=== PATIENT | male | born 1980 | race Caucasian/White ===

== ENCOUNTER 2017-01-25 12:36 | Inpatient (IN) | payer MEDICAID ==
[~2017-01-25] VITALS: Ht 177.8 cm; Wt 94.8 kg
[2017-01-25 14:05] LABS: BASOPHILS % (AUTO) 0.8 % (0.0-2.0); EOSINOPHILS % (AUTO) 4.2 % (1.0-6.0); HEMATOCRIT 42.7 % (41-53); HEMOGLOBIN 14.7 g/dL (13.5-17.5); LYMPHOCYTES # (AUTO) 2.8 K/uL (1.0-4.8); LYMPHOCYTES % (AUTO) 39.2 % (22.0-44.0); MEAN CORPUSCULAR HEMOGLOBIN 30.4 pg (26.0-34.0); MEAN CORPUSCULAR HGB CONC 34.3 G/dL (31.0-37.0); MEAN CORPUSCULAR VOLUME 89 fL (80-100); MONOCYTES # (AUTO) 0.5 K/uL (0.1-1.0); MONOCYTES % (AUTO) 7.6 % (2.0-9.0); NEUTROPHILS # (AUTO) 3.4 K/uL (1.8-7.7); NEUTROPHILS % (AUTO) 48.2 % (40.0-70.0); PLATELET COUNT (AUTO) 290 K/uL (150-450); RED BLOOD CELL COUNT(AUTO) 4.82 MIL/uL (4.50-5.90); RED CELL DISTRIBUTION WIDTH 13.7 % (11.5-14.5); WHITE BLOOD COUNT (AUTO) 7.1 K/uL (4.5-11.0)
[2017-01-25 14:07] LABS: GLUCOSE,POINT OF CARE 271 MG/DL (70-110)
[2017-01-25 14:12] LABS: ANION GAP 3 mmol/L (8-16); CALCIUM, TOTAL 8.3 mg/dL (8.8-10.5); CARBON DIOXIDE 34 mmol/L (22-29); CHLORIDE 104 mmol/L (98-107); CREATININE 1.04 mg/dL (0.60-1.30); GLOMERULAR FILTR. RATE CALC > 60 mL/min (>60); SODIUM SERUM 141 mmol/L (136-145); UREA NITROGEN, BLOOD 7 mg/dL (7-18)
[2017-01-25 14:18] LABS: ALANINE AMINOTRANSFERASE 23 U/L (12-78); ALBUMIN 3.8 g/dL (3.4-5.0); ASPARTATE AMINOTRANSFERASE 15 U/L (15-37); BILIRUBIN,TOTAL 0.3 mg/dL (0.1-1.0); TOTAL PROTEIN, SERUM 7.2 g/dL (6.4-8.2)
[2017-01-25] MEDS: LORazepam 2 MG TABLET PO ONE ×2 (15:09→15:42)
[2017-01-25 17:04] LABS: CHOL/HDL RATIO 5.4 (4.2-7.3)
[2017-01-25 18:48] VITALS: BP 142/82
[2017-01-25] MEDS ORDERED: DEXTROSE 50%-WATER 25 GM/50 ML SYRINGE IVP PRN (20:00)
[2017-01-25 20:07] LABS: GLUCOSE COMMENT 1 Received Meds; GLUCOSE,POINT OF CARE 185 MG/DL (70-110)
[2017-01-25] MEDS: HALOPERIDOL 5 MG TABLET PO PRN (20:08)
[2017-01-25] MEDS: LORazepam 2 MG TABLET PO PRN (20:09)
[2017-01-25] MEDS: ZOLPIDEM TARTRATE 10 MG TABLET PO PRN (21:27)
[2017-01-25] MEDS: INSULIN ASPART 100 UNITS/ML SQ PRN (21:51)
[2017-01-26 05:42] LABS: GLUCOSE,POINT OF CARE 146 MG/DL (70-110)
[2017-01-26] MEDS: INSULIN ASPART 100 UNITS/ML SQ PRN (07:10)
[2017-01-26 08:30] VITALS: BP 140/84
[2017-01-26] MEDS: NICOTINE 21 MG/24 HOUR PATCH TD SCH (11:32)
[2017-01-26 11:52] LABS: GLUCOSE,POINT OF CARE 134 MG/DL (70-110)
[2017-01-26 17:44] VITALS: BP 124/66
[2017-01-26] MEDS ORDERED: ACETAMINOPHEN 325 MG TABLET PO PRN (20:00)
[2017-01-26] MEDS ORDERED: IBUPROFEN 400 MG TABLET PO PRN (20:00)
[2017-01-26] MEDS: SIMVASTATIN 5 MG TABLET PO SCH (21:52)
[2017-01-26 22:42] LABS: GLUCOSE COMMENT 1 FASTING; GLUCOSE,POINT OF CARE 87 MG/DL (70-110)
[2017-01-27 06:28] LABS: GLUCOSE COMMENT 1 Received Meds; GLUCOSE,POINT OF CARE 173 MG/DL (70-110)
[2017-01-27 06:57] LABS: HEMOGLOBIN A1C 8.8 % (4.5-6.2)
[2017-01-27 07:01] LABS: THYROID STIMULATING HORMONE 0.38 uIU/mL (0.36-3.74)
[2017-01-27] MEDS: INSULIN ASPART 100 UNITS/ML SQ PRN ×2 (07:15→22:00)
[2017-01-27 08:30] VITALS: BP 124/81
[2017-01-27] MEDS: FISH OIL/OMEGA-3 FATTY ACIDS 500 MG CAPSULE PO SCH (09:56)
[2017-01-27] MEDS: NICOTINE 21 MG/24 HOUR PATCH TD SCH (10:01)
[2017-01-27 12:07] LABS: GLUCOSE,POINT OF CARE 134 MG/DL (70-110)
[2017-01-27] MEDS: CITALOPRAM HYDROBROMIDE 20 MG TABLET PO SCH (12:55)
[2017-01-27 17:33] LABS: GLUCOSE COMMENT 1 FASTING; GLUCOSE,POINT OF CARE 119 MG/DL (70-110)
[2017-01-27] MEDS: ZOLPIDEM TARTRATE 10 MG TABLET PO PRN (20:35)
[2017-01-27] MEDS: SIMVASTATIN 5 MG TABLET PO SCH (20:36)
[2017-01-27 20:42] LABS: GLUCOSE COMMENT 1 FASTING; GLUCOSE,POINT OF CARE 225 MG/DL (70-110)
[2017-01-27 21:30] VITALS: BP 115/63
[2017-01-28 04:30] VITALS: BP 127/85
[2017-01-28 05:27] LABS: GLUCOSE,POINT OF CARE 206 MG/DL (70-110)
[2017-01-28] MEDS: INSULIN ASPART 100 UNITS/ML SQ PRN (06:42)
[2017-01-28 08:30] VITALS: BP 129/77
[2017-01-28] MEDS: CITALOPRAM HYDROBROMIDE 20 MG TABLET PO SCH (09:48)
[2017-01-28] MEDS: FISH OIL/OMEGA-3 FATTY ACIDS 500 MG CAPSULE PO SCH (09:48)
[2017-01-28] MEDS: NICOTINE 21 MG/24 HOUR PATCH TD SCH (09:48)
[2017-01-28] MEDS: LORazepam 2 MG TABLET PO PRN (09:52)
[2017-01-28] MEDS: HALOPERIDOL 5 MG TABLET PO PRN (09:52)
[2017-01-28 11:57] LABS: GLUCOSE,POINT OF CARE 106 MG/DL (70-110)
[2017-01-28] MEDS ORDERED: CITA20TA9 PO (14:21)
[2017-01-28] MEDS ORDERED: SIMV5TAB6 PO (14:22)
== END 2017-01-28 18:00 | disposition home or self-care (01) | DRG 751 ==
LOC: EMS 12:37 → AHU 17:24 → 3EI 17:24
PROVIDERS: ADMIT Psychiatry & Neurology Psychiatry; ATTEND Psychiatry & Neurology Psychiatry
DX: F33.2 Major depressive disorder, recurrent severe without psychotic features (principal); R45.851 Suicidal ideations; E11.65 Type 2 diabetes mellitus with hyperglycemia; E78.5 Hyperlipidemia, unspecified; F10.10 Alcohol abuse, uncomplicated; F15.10 Other stimulant abuse, uncomplicated; F19.10 Other psychoactive substance abuse, uncomplicated; F17.210 Nicotine dependence, cigarettes, uncomplicated; Z71.41 Alcohol abuse counseling and surveillance of alcoholic; Z71.51 Drug abuse counseling and surveillance of drug abuser; Z79.4 Long term (current) use of insulin; Z59.0 Homelessness
CPT/HCPCS: 82962; 83036; 84443; 99285; G0480

== ENCOUNTER 2017-02-01 16:29 | Inpatient (IN) | payer MEDICAID ==
[~2017-02-01] VITALS: Ht 172.7 cm; Wt 97.4 kg
[~2017-02-01 16:29] MED LIST: CITA20TA9 PO; SIMV5TAB6 PO
[2017-02-01 16:42] LABS: GLUCOSE,POINT OF CARE 190 MG/DL (70-110)
[2017-02-01 18:11] LABS: ANION GAP 3 mmol/L (8-16); CARBON DIOXIDE 34 mmol/L (22-29); CHLORIDE 101 mmol/L (98-107); CREATININE 0.94 mg/dL (0.60-1.30); GLOMERULAR FILTR. RATE CALC > 60 mL/min (>60); POTASSIUM 4.5 mmol/L (3.5-5.1); SODIUM SERUM 138 mmol/L (136-145); UREA NITROGEN, BLOOD 9 mg/dL (7-18)
[2017-02-01 18:17] LABS: ALANINE AMINOTRANSFERASE 25 U/L (12-78); ALBUMIN 3.8 g/dL (3.4-5.0); ASPARTATE AMINOTRANSFERASE 16 U/L (15-37); BASOPHILS # (AUTO) 0.05 K/uL (0.00-0.20); BASOPHILS % (AUTO) 0.8 % (0.0-2.0); BILIRUBIN,TOTAL 0.2 mg/dL (0.1-1.0); EOSINOPHILS # (AUTO) 0.13 K/uL (0.00-0.70); EOSINOPHILS % (AUTO) 1.82 % (1.0-6.0); HEMATOCRIT 41.6 % (41-53); HEMOGLOBIN 13.9 g/dL (13.5-17.5); LYMPHOCYTES # (AUTO) 3.1 K/uL (1.0-4.8); LYMPHOCYTES % (AUTO) 43.7 % (22.0-44.0); MEAN CORPUSCULAR HEMOGLOBIN 29.8 pg (26.0-34.0); MEAN CORPUSCULAR HGB CONC 33.4 G/dL (31.0-37.0); MEAN CORPUSCULAR VOLUME 89 fL (80-100); MONOCYTES # (AUTO) 0.9 K/uL (0.1-1.0); MONOCYTES % (AUTO) 13.1 % (2.0-9.0); NEUTROPHILS # (AUTO) 2.9 K/uL (1.8-7.7); NEUTROPHILS % (AUTO) 40.6 % (40.0-70.0); PLATELET COUNT (AUTO) 249 K/uL (150-450); RED BLOOD CELL COUNT(AUTO) 4.67 MIL/uL (4.50-5.90); RED CELL DISTRIBUTION WIDTH 13.7 % (11.5-14.5); TOTAL PROTEIN, SERUM 7.1 g/dL (6.4-8.2)
[2017-02-01] MEDS ORDERED: LORazepam 2 MG TABLET PO PRN (20:15)
[2017-02-01] MEDS ORDERED: HALOPERIDOL 5 MG TABLET PO PRN (20:15)
[2017-02-01] MEDS ORDERED: QUEtiapine FUMARATE 100 MG TABLET PO PRN (20:15)
[2017-02-01] MEDS ORDERED: ZOLPIDEM TARTRATE 10 MG TABLET PO PRN ×2 (20:15)
[2017-02-01] MEDS ORDERED: LORazepam 2 MG TABLET PO ONE (20:30)
[2017-02-01] MEDS ORDERED: HALOPERIDOL 5 MG TABLET PO ONE (20:30)
[2017-02-01] MEDS ORDERED: DiphenhydrAMINE HCL 25 MG CAPSULE PO ONE (20:30)
[2017-02-01 20:36] LABS: APPEARANCE,URINE CLEAR (CLEAR); GLUCOSE, URINE (UA) 500 mg/dL (NEGATIVE); KETONES,URINE NEGATIVE (NEGATIVE); LEUKOCYTE ESTERASE ,URINE NEGATIVE (NEGATIVE); OCCULT BLOOD,URINE NEGATIVE (NEGATIVE); PH,URINE 6.5 (5.0-8.0); PROTEIN,URINE NEGATIVE (NEGATIVE)
[2017-02-01 20:38] LABS: ADD UA MICROSCOPIC YES
[2017-02-01 20:48] LABS: SQUAMOUS EPITHELIAL CELL,UR Few /LPF (None Seen)
[2017-02-01 20:50] LABS: RBC,URINE None Seen /HPF (0-2); TRANSITIONAL EPI CELLS,URINE Few /LPF (None Seen)
[2017-02-01] MEDS ORDERED: ACETAMINOPHEN 325 MG TABLET PO PRN ×2 (21:00→23:00)
[2017-02-01 22:00] VITALS: BP 125/69
[2017-02-01 22:12] LABS: GLUCOSE COMMENT 1 Received Meds; GLUCOSE,POINT OF CARE 168 MG/DL (70-110)
[2017-02-01] MEDS ORDERED: PNEUMOCOCCAL VACCINE POLYVALENT 0.5 ML VIAL [PPSV23] IM ONE (22:15)
[2017-02-02 06:39] VITALS: BP 105/66
[2017-02-02 08:32] VITALS: BP 111/73
[2017-02-02] MEDS: NICOTINE 14 MG/24 HOUR PATCH TD SCH (09:41)
[2017-02-02] MEDS: LORazepam 2 MG TABLET PO PRN ×2 (09:49→18:49)
[2017-02-02] MEDS ORDERED: GLUCAGON,HUMAN RECOMBINANT 1 MG VIAL IM PRN (13:30)
[2017-02-02 16:48] VITALS: BP 117/79
[2017-02-02] MEDS: DIVALPROEX SODIUM 500 MG DR TABLET PO SCH (17:04)
[2017-02-02] MEDS: INSULIN ASPART 100 UNITS/ML SQ PRN ×2 (17:05→21:03)
[2017-02-02 17:57] LABS: GLUCOSE COMMENT 1 Received Meds; GLUCOSE,POINT OF CARE 198 MG/DL (70-110)
[2017-02-02] MEDS ORDERED: SIMVASTATIN 20 MG TABLET PO SCH (21:00)
[2017-02-02 21:12] LABS: GLUCOSE,POINT OF CARE 136 MG/DL (70-110)
[2017-02-03 06:24] LABS: GLUCOSE,POINT OF CARE 152 MG/DL (70-110)
[2017-02-03] MEDS: INSULIN ASPART 100 UNITS/ML SQ PRN ×2 (06:26→12:09)
[2017-02-03 06:30] VITALS: BP 104/66
[2017-02-03 07:50] LABS: CHOL/HDL RATIO 4.7 (4.2-7.3)
[2017-02-03 09:02] VITALS: BP 106/65
[2017-02-03] MEDS: NICOTINE 14 MG/24 HOUR PATCH TD SCH (09:09)
[2017-02-03] MEDS: DIVALPROEX SODIUM 500 MG DR TABLET PO SCH ×2 (09:09→16:01)
[2017-02-03] MEDS ORDERED: CITALOPRAM HYDROBROMIDE 20 MG TABLET PO SCH (09:45)
[2017-02-03] MEDS: LORazepam 2 MG TABLET PO PRN (09:57)
[2017-02-03] MEDS ORDERED: MUPI1OIN4 NS (10:59)
[2017-02-03] MEDS ORDERED: DIVA500T35 PO (10:59)
[2017-02-03] MEDS ORDERED: SIMV-260 PO (10:59)
[2017-02-03 12:47] LABS: GLUCOSE,POINT OF CARE 175 MG/DL (70-110)
[2017-02-03 16:42] VITALS: BP 105/65
== END 2017-02-03 16:20 | disposition home or self-care (01) | DRG 750 ==
LOC: EMS 16:31 → B3A 20:30 → 3EI 02-03 09:05 → B3A 02-03 11:59
PROVIDERS: ADMIT Psychiatry & Neurology Psychiatry; ATTEND Psychiatry & Neurology Psychiatry
DX: F25.9 Schizoaffective disorder, unspecified (principal); R45.850 Homicidal ideations; R45.851 Suicidal ideations; E11.9 Type 2 diabetes mellitus without complications; E78.5 Hyperlipidemia, unspecified; F19.10 Other psychoactive substance abuse, uncomplicated; F10.10 Alcohol abuse, uncomplicated; Y90.0 Blood alcohol level of less than 20 mg/100 ml; Z72.0 Tobacco use
CPT/HCPCS: 82962; 87081; 90471; 99285; G0480

== ENCOUNTER 2017-05-18 15:40 | Emergency (ER) | payer MEDICAID, OTHER ==
[~2017-05-18] VITALS: Ht 172.7 cm; Wt 103.2 kg
[~2017-05-18 15:40] MED LIST changes: -CITA20TA9 PO; +DIVA500T35 PO; +FLUO-191 PO; +METO25XL PO; +QUET200T PO; +SIMV-260 PO; -SIMV5TAB6 PO
[2017-05-18 16:03] LABS: GLUCOSE,POINT OF CARE 188 MG/DL (70-110)
[2017-05-18] MEDS ORDERED: TRAM50TA4 PO (16:05)
[2017-05-18] MEDS ORDERED: INSLAN SQ (16:05)
[2017-05-18] MEDS ORDERED: HUMLIS7525 SQ (16:05)
[2017-05-18] MEDS ORDERED: ACETAMINOPHEN 1000 MG/ISO-OSM 100 ML IV ONE (16:15)
[2017-05-18 16:36] LABS: BASOPHILS % (AUTO) 0.5 % (0.0-2.0); EOSINOPHILS % (AUTO) 1.3 % (1.0-6.0); HEMATOCRIT 39.3 % (41-53); HEMOGLOBIN 13.3 g/dL (13.5-17.5); LYMPHOCYTES # (AUTO) 2.8 K/uL (1.0-4.8); LYMPHOCYTES % (AUTO) 50.1 % (22.0-44.0); MEAN CORPUSCULAR HEMOGLOBIN 30.7 pg (26.0-34.0); MEAN CORPUSCULAR HGB CONC 33.8 G/dL (31.0-37.0); MEAN CORPUSCULAR VOLUME 91 fL (80-100); MONOCYTES # (AUTO) 0.6 K/uL (0.1-1.0); MONOCYTES % (AUTO) 10.4 % (2.0-9.0); NEUTROPHILS # (AUTO) 2.1 K/uL (1.8-7.7); NEUTROPHILS % (AUTO) 37.7 % (40.0-70.0); PLATELET COUNT (AUTO) 255 K/uL (150-450); RED BLOOD CELL COUNT(AUTO) 4.32 MIL/uL (4.50-5.90); RED CELL DISTRIBUTION WIDTH 14.1 % (11.5-14.5); WHITE BLOOD COUNT (AUTO) 5.6 K/uL (4.5-11.0)
[2017-05-18 16:47] LABS: ANION GAP 8 mmol/L (8-16); CALCIUM, TOTAL 8.4 mg/dL (8.8-10.5); CARBON DIOXIDE 30 mmol/L (22-29); CHLORIDE 103 mmol/L (98-107); CREATININE 0.75 mg/dL (0.60-1.30); GLOMERULAR FILTR. RATE CALC > 60 mL/min (>60); POTASSIUM 3.7 mmol/L (3.5-5.1); SODIUM SERUM 141 mmol/L (136-145); UREA NITROGEN, BLOOD 10 mg/dL (7-18)
[2017-05-18 17:00] LABS: B-TYPE NATRIURETIC PEPTIDE 10 pg/mL (0-100)
[2017-05-18] MEDS ORDERED: SODIUM CHLORIDE 0.9% 1,000 ML IV ONE (17:00)
[2017-05-18 17:10] LABS: ALANINE AMINOTRANSFERASE 22 U/L (12-78); ALBUMIN 3.7 g/dL (3.4-5.0); ASPARTATE AMINOTRANSFERASE 15 U/L (15-37); BILIRUBIN,TOTAL 0.2 mg/dL (0.1-1.0); CREATINE KINASE, TOTAL 362 U/L (39-308); TOTAL PROTEIN, SERUM 6.9 g/dL (6.4-8.2)
[2017-05-18] MEDS ORDERED: HydrOXYzine PAMOATE 50 MG CAPSULE PO ONE (17:45)
[2017-05-18] MEDS ORDERED: KETOROLAC TROMETHAMINE 30 MG/ML VIAL IVP ONE (18:30)
[2017-05-18 18:41] VITALS: BP 127/77
== END 2017-05-18 18:56 | disposition home or self-care (01) ==
LOC: EMS 15:44
DX: R07.89 Other chest pain (principal); F41.9 Anxiety disorder, unspecified; E11.9 Type 2 diabetes mellitus without complications; F17.210 Nicotine dependence, cigarettes, uncomplicated
CPT/HCPCS: 36415; 71010; 80053; 80307; 82550; 82553; 82962; 83880; 84484; 85025; 85379; 93005; 96365; 96366; 96375; 99285; J0131; J1885; J7030; 96374

== ENCOUNTER 2017-05-18 22:07 | Emergency (ER) | payer OTHER ==
[~2017-05-18] VITALS: Ht 172.7 cm; Wt 103.5 kg
[~2017-05-18 22:07] MED LIST changes: +HUMLIS7525 SQ; +INSLAN SQ; +TRAM50TA4 PO
[2017-05-18] MEDS ORDERED: LORazepam 2 MG TABLET PO ONE (23:45)
[2017-05-18] MEDS ORDERED: KETOROLAC TROMETHAMINE 60 MG/2 ML VIAL IM ONE (23:45)
[2017-05-19 00:03] VITALS: BP 147/93
== END 2017-05-19 00:10 | disposition home or self-care (01) ==
LOC: EMS 22:08
DX: R07.89 Other chest pain (principal); E11.9 Type 2 diabetes mellitus without complications; F17.210 Nicotine dependence, cigarettes, uncomplicated
CPT/HCPCS: 93005; 96372; 99283; J1885

== ENCOUNTER 2017-05-19 11:56 | Inpatient (IN) | payer MEDICAID, OTHER ==
[~2017-05-19] VITALS: Ht 172.7 cm; Wt 103.0 kg
[2017-05-19 12:12] LABS: GLUCOSE,POINT OF CARE 242 MG/DL (70-110)
[2017-05-19 12:23] LABS: BASOPHILS % (AUTO) 0.5 % (0.0-2.0); EOSINOPHILS % (AUTO) 0.9 % (1.0-6.0); HEMATOCRIT 42.7 % (41-53); HEMOGLOBIN 14.5 g/dL (13.5-17.5); LYMPHOCYTES # (AUTO) 2.4 K/uL (1.0-4.8); LYMPHOCYTES % (AUTO) 23.8 % (22.0-44.0); MEAN CORPUSCULAR HEMOGLOBIN 30.9 pg (26.0-34.0); MEAN CORPUSCULAR HGB CONC 33.8 G/dL (31.0-37.0); MEAN CORPUSCULAR VOLUME 91 fL (80-100); MONOCYTES # (AUTO) 1.3 K/uL (0.1-1.0); MONOCYTES % (AUTO) 12.3 % (2.0-9.0); NEUTROPHILS # (AUTO) 6.3 K/uL (1.8-7.7); NEUTROPHILS % (AUTO) 62.5 % (40.0-70.0); PLATELET COUNT (AUTO) 253 K/uL (150-450); RED BLOOD CELL COUNT(AUTO) 4.68 MIL/uL (4.50-5.90); RED CELL DISTRIBUTION WIDTH 14.3 % (11.5-14.5); WHITE BLOOD COUNT (AUTO) 10.2 K/uL (4.5-11.0)
[2017-05-19 12:31] LABS: ANION GAP 7 mmol/L (8-16); CALCIUM, TOTAL 8.7 mg/dL (8.8-10.5); CARBON DIOXIDE 29 mmol/L (22-29); CHLORIDE 103 mmol/L (98-107); CREATININE 1.01 mg/dL (0.60-1.30); GLOMERULAR FILTR. RATE CALC > 60 mL/min (>60); POTASSIUM 4.6 mmol/L (3.5-5.1); SODIUM SERUM 139 mmol/L (136-145); UREA NITROGEN, BLOOD 16 mg/dL (7-18)
[2017-05-19 12:37] LABS: ALANINE AMINOTRANSFERASE 22 U/L (12-78); ALBUMIN 3.9 g/dL (3.4-5.0); ASPARTATE AMINOTRANSFERASE 11 U/L (15-37); BILIRUBIN,TOTAL 0.3 mg/dL (0.1-1.0); TOTAL PROTEIN, SERUM 7.3 g/dL (6.4-8.2); VALPROIC ACID 53 mcg/mL (50-100)
[2017-05-19] MEDS ORDERED: ZOLPIDEM TARTRATE 10 MG TABLET PO PRN (13:15)
[2017-05-19] MEDS: LORazepam 2 MG TABLET PO PRN (17:58)
[2017-05-19] MEDS: HALOPERIDOL 5 MG TABLET PO PRN (17:58)
[2017-05-19 17:59] VITALS: BP 129/94
[2017-05-19 18:13] LABS: GLUCOSE,POINT OF CARE 251 MG/DL (70-110)
[2017-05-19] MEDS ORDERED: INFLUENZA VIRUS VACCINE QVS 2017-18 (3YR+)/PF 60 MCG/0.5 ML SYRINGE IM ONE (18:15)
[2017-05-19] MEDS ORDERED: GLUCAGON,HUMAN RECOMBINANT 1 MG VIAL IM PRN (18:30)
[2017-05-19 20:42] LABS: GLUCOSE COMMENT 1 Received Meds; GLUCOSE,POINT OF CARE 235 MG/DL (70-110)
[2017-05-19] MEDS: INSULIN ASPART 100 UNITS/ML SQ PRN (21:00)
[2017-05-19] MEDS: SIMVASTATIN 20 MG TABLET PO SCH (21:07)
[2017-05-20 06:36] VITALS: BP 128/81
[2017-05-20 06:37] LABS: GLUCOSE,POINT OF CARE 151 MG/DL (70-110)
[2017-05-20] MEDS: INSULIN ASPART 100 UNITS/ML SQ PRN ×5 (06:49→21:00)
[2017-05-20 08:03] VITALS: BP 135/83
[2017-05-20 08:25] LABS: CHOL/HDL RATIO 3.9 (4.2-7.3)
[2017-05-20] MEDS ORDERED: ONDANSETRON HCL 4 MG TABLET PO PRN (09:00)
[2017-05-20] MEDS ORDERED: MAGNESIUM HYDROXIDE SUSPENSION 30 ML UDCUP PO PRN (09:00)
[2017-05-20] MEDS ORDERED: ACETAMINOPHEN 325 MG TABLET PO PRN (09:00)
[2017-05-20] MEDS ORDERED: ALBUTEROL SULFATE HFA 90 MCG/PUFF 8 GM INHALER IH PRN (09:00)
[2017-05-20] MEDS ORDERED: CloNIDine HCL 0.1 MG TABLET PO PRN (09:00)
[2017-05-20] MEDS ORDERED: MAG HYDROX/AL HYDROX/SIMETH ES 30 ML SUSPENSION UDCUP PO PRN (09:00)
[2017-05-20] MEDS ORDERED: IBUPROFEN 600 MG TABLET PO PRN (09:00)
[2017-05-20] MEDS ORDERED: BACITRACIN 28.4 GM OINTMENT TP PRN (09:00)
[2017-05-20] MEDS ORDERED: LOPERAMIDE HCL 2 MG CAPSULE PO PRN (09:00)
[2017-05-20] MEDS ORDERED: PETROLATUM,WHITE 71 GM JELLY TP PRN (09:00)
[2017-05-20] MEDS: LORazepam 2 MG TABLET PO PRN (09:13)
[2017-05-20] MEDS: HALOPERIDOL 5 MG TABLET PO PRN (09:13)
[2017-05-20] MEDS: NICOTINE 21 MG/24 HOUR PATCH TD SCH (09:14)
[2017-05-20] MEDS: INSULIN LISPRO PROTAM-LISPRO HUM 75/25 UNITS/ML SQ SCH ×2 (11:30→16:30)
[2017-05-20 12:03] LABS: GLUCOSE,POINT OF CARE 201 MG/DL (70-110)
[2017-05-20] MEDS: FLUoxetine HCL 20 MG CAPSULE PO SCH (14:23)
[2017-05-20 16:00] VITALS: BP 120/83
[2017-05-20] MEDS: DIVALPROEX SODIUM 500 MG ER TABLET PO SCH (17:23)
[2017-05-20 17:52] LABS: GLUCOSE COMMENT 1 Received Meds; GLUCOSE,POINT OF CARE 198 MG/DL (70-110)
[2017-05-20] MEDS: RisperiDONE 2 MG TABLET PO SCH (20:54)
[2017-05-20] MEDS: SIMVASTATIN 20 MG TABLET PO SCH (20:54)
[2017-05-20] MEDS: INSULIN DETEMIR 100 UNITS/ML SQ SCH (21:00)
[2017-05-20 22:23] LABS: GLUCOSE COMMENT 1 Received Meds; GLUCOSE,POINT OF CARE 157 MG/DL (70-110)
[2017-05-21] MEDS: INSULIN LISPRO PROTAM-LISPRO HUM 75/25 UNITS/ML SQ SCH ×3 (06:31→16:19)
[2017-05-21 06:32] VITALS: BP 106/90
[2017-05-21 06:38] LABS: GLUCOSE,POINT OF CARE 134 MG/DL (70-110)
[2017-05-21] MEDS: NICOTINE 21 MG/24 HOUR PATCH TD SCH (08:27)
[2017-05-21] MEDS: LORazepam 2 MG TABLET PO PRN ×2 (08:28→16:17)
[2017-05-21] MEDS: HALOPERIDOL 5 MG TABLET PO PRN (08:28)
[2017-05-21] MEDS: DIVALPROEX SODIUM 500 MG ER TABLET PO SCH ×2 (08:28→16:16)
[2017-05-21] MEDS: FLUoxetine HCL 20 MG CAPSULE PO SCH (08:28)
[2017-05-21 08:34] VITALS: BP 134/83
[2017-05-21] MEDS ORDERED: BENZOCAINE/MENTHOL LOZENGE PO PRN (10:30)
[2017-05-21 11:48] LABS: GLUCOSE,POINT OF CARE 149 MG/DL (70-110)
[2017-05-21] MEDS: BENZOCAINE/MENTHOL LOZENGE MM PRN (12:04)
[2017-05-21] MEDS: GuaiFENesin/D-METHORPHAN [SUGAR-FREE] 200-20MG/10 ML SYRUP UDCUP PO SCH ×3 (12:43→20:46)
[2017-05-21] MEDS: SODIUM CHLORIDE 0.65% 44 ML NASAL SPRAY NASAL SCH ×3 (13:19→20:46)
[2017-05-21] MEDS: INSULIN ASPART 100 UNITS/ML SQ PRN (16:18)
[2017-05-21 16:37] VITALS: BP 119/76
[2017-05-21 17:08] LABS: GLUCOSE COMMENT 1 Received Meds; GLUCOSE,POINT OF CARE 143 MG/DL (70-110)
[2017-05-21] MEDS: RisperiDONE 2 MG TABLET PO SCH (20:46)
[2017-05-21] MEDS: SIMVASTATIN 20 MG TABLET PO SCH (20:46)
[2017-05-21] MEDS: INSULIN DETEMIR 100 UNITS/ML SQ SCH (20:48)
[2017-05-21 21:37] LABS: GLUCOSE COMMENT 1 Received Meds; GLUCOSE COMMENT 2 Doctor Notified; GLUCOSE,POINT OF CARE 102 MG/DL (70-110)
[2017-05-22] MEDS: GuaiFENesin/D-METHORPHAN [SUGAR-FREE] 200-20MG/10 ML SYRUP UDCUP PO SCH ×5 (01:04→16:04)
[2017-05-22] MEDS: SODIUM CHLORIDE 0.65% 44 ML NASAL SPRAY NASAL SCH ×6 (01:04→14:38)
[2017-05-22 05:30] VITALS: BP 134/77
[2017-05-22] MEDS: INSULIN LISPRO PROTAM-LISPRO HUM 75/25 UNITS/ML SQ SCH ×3 (06:41→16:51)
[2017-05-22] MEDS: INSULIN ASPART 100 UNITS/ML SQ PRN ×2 (06:41→16:50)
[2017-05-22 06:44] LABS: GLUCOSE,POINT OF CARE 158 MG/DL (70-110)
[2017-05-22 08:20] VITALS: BP 119/77
[2017-05-22] MEDS: NICOTINE 21 MG/24 HOUR PATCH TD SCH (08:29)
[2017-05-22] MEDS: FLUoxetine HCL 20 MG CAPSULE PO SCH (08:29)
[2017-05-22] MEDS: DIVALPROEX SODIUM 500 MG ER TABLET PO SCH ×2 (08:29→16:04)
[2017-05-22] MEDS: LORazepam 2 MG TABLET PO PRN ×2 (08:30→13:49)
[2017-05-22 11:13] LABS: GLUCOSE,POINT OF CARE 138 MG/DL (70-110)
[2017-05-22] MEDS: BENZOCAINE/MENTHOL LOZENGE MM PRN (14:39)
[2017-05-22 16:00] VITALS: BP 115/68
[2017-05-22] MEDS ORDERED: RISP2 PO (16:31)
[2017-05-22] MEDS ORDERED: DIVA500T52 PO (16:31)
[2017-05-22] MEDS ORDERED: FLUO-191 PO (16:32)
[2017-05-22] MEDS ORDERED: INSLAN SQ (16:38)
[2017-05-22] MEDS ORDERED: GUAIFDM PO (16:40)
[2017-05-22] MEDS ORDERED: SODI44SP18 NASAL (16:41)
[2017-05-22] MEDS ORDERED: INSNOV SQ (16:43)
[2017-05-22] MEDS ORDERED: LANC1KIT39 MC (16:45)
[2017-05-22] MEDS ORDERED: BLOO-140 (16:45)
[2017-05-22] MEDS ORDERED: LANC1COM2 SQ (16:47)
[2017-05-22 17:22] LABS: GLUCOSE COMMENT 1 Received Meds; GLUCOSE,POINT OF CARE 262 MG/DL (70-110)
== END 2017-05-22 18:05 | disposition home or self-care (01) | DRG 750 ==
LOC: EMS 11:57 → B3A 13:35 → 3EC 13:35 → AHU 13:35
PROVIDERS: ADMIT Psychiatry & Neurology Psychiatry; ATTEND Psychiatry & Neurology Psychiatry
DX: F25.1 Schizoaffective disorder, depressive type (principal); E11.65 Type 2 diabetes mellitus with hyperglycemia; I10 Essential (primary) hypertension; R45.850 Homicidal ideations; E66.9 Obesity, unspecified; F15.90 Other stimulant use, unspecified, uncomplicated; F41.9 Anxiety disorder, unspecified; G47.00 Insomnia, unspecified; K59.00 Constipation, unspecified; F60.3 Borderline personality disorder; R05 Cough; F17.210 Nicotine dependence, cigarettes, uncomplicated; Z71.6 Tobacco abuse counseling; Z81.8 Family history of other mental and behavioral disorders; Z91.5 Personal history of self-harm; Z68.34 Body mass index [BMI] 34.0-34.9, adult
CPT/HCPCS: 82962; 99285; G0480; J1815

== ENCOUNTER 2017-05-23 15:04 | Emergency (ER) | payer MEDICAID, OTHER ==
[~2017-05-23] VITALS: Ht 172.7 cm; Wt 103.2 kg
[~2017-05-23 15:04] MED LIST changes: +BLOO-140; -DIVA500T35 PO; +DIVA500T52 PO; +GUAIFDM PO; +INSNOV SQ; +LANC1COM2 SQ; +LANC1KIT39 MC; -METO25XL PO; -QUET200T PO; +RISP2 PO; +SODI44SP18 NASAL; -TRAM50TA4 PO
[2017-05-23 16:28] LABS: BASOPHILS % (AUTO) 0.5 % (0.0-2.0); EOSINOPHILS % (AUTO) 0.7 % (1.0-6.0); HEMATOCRIT 41.1 % (41-53); HEMOGLOBIN 13.9 g/dL (13.5-17.5); LYMPHOCYTES # (AUTO) 2.7 K/uL (1.0-4.8); LYMPHOCYTES % (AUTO) 34.5 % (22.0-44.0); MEAN CORPUSCULAR HEMOGLOBIN 30.8 pg (26.0-34.0); MEAN CORPUSCULAR HGB CONC 33.9 G/dL (31.0-37.0); MEAN CORPUSCULAR VOLUME 91 fL (80-100); MONOCYTES # (AUTO) 0.9 K/uL (0.1-1.0); NEUTROPHILS % (AUTO) 52.3 % (40.0-70.0); PLATELET COUNT (AUTO) 245 K/uL (150-450); RED BLOOD CELL COUNT(AUTO) 4.52 MIL/uL (4.50-5.90); RED CELL DISTRIBUTION WIDTH 13.5 % (11.5-14.5); WHITE BLOOD COUNT (AUTO) 7.7 K/uL (4.5-11.0)
[2017-05-23 16:32] LABS: INR 0.9 (0.9-1.1); PROTHROMBIN TIME 9.7 SEC (9.4-11.6)
[2017-05-23 16:43] LABS: ANION GAP 5 mmol/L (8-16); CALCIUM, TOTAL 8.7 mg/dL (8.8-10.5); CARBON DIOXIDE 31 mmol/L (22-29); CHLORIDE 104 mmol/L (98-107); CREATININE 0.83 mg/dL (0.60-1.30); GLOMERULAR FILTR. RATE CALC > 60 mL/min (>60); POTASSIUM 3.8 mmol/L (3.5-5.1); SODIUM SERUM 140 mmol/L (136-145); UREA NITROGEN, BLOOD 15 mg/dL (7-18)
[2017-05-23 16:49] LABS: ALANINE AMINOTRANSFERASE 18 U/L (12-78); ALBUMIN 3.9 g/dL (3.4-5.0); ASPARTATE AMINOTRANSFERASE 11 U/L (15-37); BILIRUBIN,TOTAL 0.3 mg/dL (0.1-1.0); TOTAL PROTEIN, SERUM 7.4 g/dL (6.4-8.2)
[2017-05-23] MEDS ORDERED: ACETAMINOPHEN 325 MG TABLET PO ONE (18:45)
[2017-05-23 18:48] VITALS: BP 140/88
[2017-05-23] MEDS ORDERED: IBUPROFEN 800 MG TABLET PO ONE (19:45)
[2017-05-23 19:49] LABS: GLUCOSE,POINT OF CARE 153 MG/DL (70-110)
== END 2017-05-23 20:48 | disposition home or self-care (01) ==
LOC: EMS 15:08
DX: R07.9 Chest pain, unspecified (principal); E11.9 Type 2 diabetes mellitus without complications; I10 Essential (primary) hypertension; F17.210 Nicotine dependence, cigarettes, uncomplicated; Z79.4 Long term (current) use of insulin
CPT/HCPCS: 82962; 93005; 99285

== ENCOUNTER 2017-05-29 01:08 | Inpatient (IN) | payer MEDICAID, OTHER ==
[~2017-05-29] VITALS: Ht 172.7 cm; Wt 107.5 kg
[2017-05-29 01:33] LABS: GLUCOSE,POINT OF CARE 114 MG/DL (70-110)
[2017-05-29 01:58] LABS: BASOPHILS # (AUTO) 0.04 K/uL (0.00-0.20); BASOPHILS % (AUTO) 0.5 % (0.0-2.0); EOSINOPHILS # (AUTO) 0.12 K/uL (0.00-0.70); EOSINOPHILS % (AUTO) 1.56 % (1.0-6.0); HEMATOCRIT 40.3 % (41-53); HEMOGLOBIN 13.8 g/dL (13.5-17.5); LYMPHOCYTES # (AUTO) 3.5 K/uL (1.0-4.8); LYMPHOCYTES % (AUTO) 44.5 % (22.0-44.0); MEAN CORPUSCULAR HEMOGLOBIN 30.7 pg (26.0-34.0); MEAN CORPUSCULAR HGB CONC 34.2 G/dL (31.0-37.0); MEAN CORPUSCULAR VOLUME 90 fL (80-100); MONOCYTES # (AUTO) 0.8 K/uL (0.1-1.0); MONOCYTES % (AUTO) 10.2 % (2.0-9.0); NEUTROPHILS # (AUTO) 3.4 K/uL (1.8-7.7); NEUTROPHILS % (AUTO) 43.2 % (40.0-70.0); PLATELET COUNT (AUTO) 246 K/uL (150-450); RED CELL DISTRIBUTION WIDTH 13.8 % (11.5-14.5); WHITE BLOOD COUNT (AUTO) 7.9 K/uL (4.5-11.0)
[2017-05-29] MEDS ORDERED: LORazepam 2 MG TABLET PO ONE (02:00)
[2017-05-29 02:05] LABS: ANION GAP 5 mmol/L (8-16); CALCIUM, TOTAL 8.8 mg/dL (8.8-10.5); CARBON DIOXIDE 32 mmol/L (22-29); CHLORIDE 104 mmol/L (98-107); CREATININE 0.83 mg/dL (0.60-1.30); GLOMERULAR FILTR. RATE CALC > 60 mL/min (>60); POTASSIUM 3.8 mmol/L (3.5-5.1); SODIUM SERUM 141 mmol/L (136-145); UREA NITROGEN, BLOOD 12 mg/dL (7-18)
[2017-05-29 02:11] LABS: ALANINE AMINOTRANSFERASE 19 U/L (12-78); ALBUMIN 3.8 g/dL (3.4-5.0); ASPARTATE AMINOTRANSFERASE 15 U/L (15-37); BILIRUBIN,TOTAL 0.2 mg/dL (0.1-1.0); TOTAL PROTEIN, SERUM 7.4 g/dL (6.4-8.2)
[2017-05-29 02:23] LABS: VALPROIC ACID 64 mcg/mL (50-100)
[2017-05-29] MEDS ORDERED: HALOPERIDOL 5 MG TABLET PO PRN (02:30)
[2017-05-29 03:29] LABS: APPEARANCE,URINE CLEAR (CLEAR); GLUCOSE, URINE (UA) NEGATIVE (NEGATIVE); KETONES,URINE TRACE mg/dL (NEGATIVE); LEUKOCYTE ESTERASE ,URINE NEGATIVE (NEGATIVE); OCCULT BLOOD,URINE NEGATIVE (NEGATIVE); PH,URINE 7.5 (5.0-8.0); PROTEIN,URINE NEGATIVE (NEGATIVE)
[2017-05-29 03:33] LABS: ADD UA MICROSCOPIC NO
[2017-05-29 04:28] VITALS: BP 123/78
[2017-05-29] MEDS ORDERED: PNEUMOCOCCAL VACCINE POLYVALENT 0.5 ML VIAL [PPSV23] IM ONE (04:30)
[2017-05-29] MEDS ORDERED: INFLUENZA VIRUS VACCINE QVS 2017-18 (3YR+)/PF 60 MCG/0.5 ML SYRINGE IM ONE (04:30)
[2017-05-29 04:31] VITALS: BP 123/78
[2017-05-29 08:39] VITALS: BP 107/63
[2017-05-29] MEDS: LORazepam 2 MG TABLET PO PRN ×2 (08:53→16:18)
[2017-05-29] MEDS ORDERED: MAG HYDROX/AL HYDROX/SIMETH ES 30 ML SUSPENSION UDCUP PO PRN (09:15)
[2017-05-29] MEDS ORDERED: MAGNESIUM HYDROXIDE SUSPENSION 30 ML UDCUP PO PRN (09:15)
[2017-05-29] MEDS ORDERED: ONDANSETRON HCL 4 MG TABLET PO PRN (09:15)
[2017-05-29] MEDS ORDERED: CloNIDine HCL 0.1 MG TABLET PO PRN (09:15)
[2017-05-29] MEDS ORDERED: DEXTROSE 50%-WATER 25 GM/50 ML SYRINGE IVP PRN (09:15)
[2017-05-29] MEDS ORDERED: BACITRACIN 28.4 GM OINTMENT TP PRN (09:15)
[2017-05-29] MEDS ORDERED: PETROLATUM,WHITE 71 GM JELLY TP PRN (09:15)
[2017-05-29] MEDS ORDERED: ALBUTEROL SULFATE HFA 90 MCG/PUFF 8 GM INHALER IH PRN (09:15)
[2017-05-29] MEDS ORDERED: LOPERAMIDE HCL 2 MG CAPSULE PO PRN (09:15)
[2017-05-29] MEDS ORDERED: ACETAMINOPHEN 325 MG TABLET PO PRN (09:15)
[2017-05-29] MEDS ORDERED: BENZOCAINE/MENTHOL LOZENGE [8 LOZENGES/PACKET] MM PRN (09:15)
[2017-05-29 11:27] LABS: GLUCOSE,POINT OF CARE 125 MG/DL (70-110)
[2017-05-29] MEDS: NICOTINE 21 MG/24 HOUR PATCH TD SCH (11:49)
[2017-05-29] MEDS: INSULIN LISPRO PROTAM-LISPRO HUM 75/25 UNITS/ML SQ SCH ×2 (12:26→17:56)
[2017-05-29 16:22] LABS: GLUCOSE,POINT OF CARE 111 MG/DL (70-110)
[2017-05-29 20:01] VITALS: BP 117/68
[2017-05-29] MEDS ORDERED: RisperiDONE 2 MG TABLET PO SCH (21:00)
[2017-05-29] MEDS ORDERED: SIMVASTATIN 20 MG TABLET PO SCH (21:00)
[2017-05-29 21:23] LABS: GLUCOSE,POINT OF CARE 162 MG/DL (70-110)
[2017-05-29] MEDS: INSULIN ASPART 100 UNITS/ML SQ PRN (21:26)
[2017-05-29] MEDS: INSULIN DETEMIR 100 UNITS/ML SQ SCH (21:27)
[2017-05-29] MEDS: RisperiDONE 2 MG TABLET PO SCH (21:27)
[2017-05-30 06:12] LABS: GLUCOSE,POINT OF CARE 80 MG/DL (70-110)
[2017-05-30 06:36] VITALS: BP 142/88
[2017-05-30] MEDS: INSULIN ASPART 100 UNITS/ML SQ PRN ×2 (07:02→16:59)
[2017-05-30 07:08] LABS: CHOL/HDL RATIO 3.1 (4.2-7.3)
[2017-05-30] MEDS: INSULIN LISPRO PROTAM-LISPRO HUM 75/25 UNITS/ML SQ SCH ×3 (07:19→16:58)
[2017-05-30 08:00] VITALS: BP 127/86
[2017-05-30] MEDS: LISINOPRIL 10 MG TABLET PO SCH (08:22)
[2017-05-30] MEDS: FLUoxetine HCL 20 MG CAPSULE PO SCH (08:22)
[2017-05-30] MEDS: RisperiDONE 2 MG TABLET PO SCH ×2 (08:22→20:23)
[2017-05-30] MEDS: DIVALPROEX SODIUM 500 MG ER TABLET PO SCH ×2 (08:22→16:31)
[2017-05-30] MEDS: LORazepam 2 MG TABLET PO PRN ×2 (08:23→12:28)
[2017-05-30] MEDS: NICOTINE 21 MG/24 HOUR PATCH TD SCH (08:34)
[2017-05-30 11:22] LABS: GLUCOSE,POINT OF CARE 95 MG/DL (70-110)
[2017-05-30] MEDS: MUPIROCIN CALCIUM 2% 22 GM OINTMENT NASAL SCH (16:32)
[2017-05-30 16:45] VITALS: BP 132/84
[2017-05-30 17:23] LABS: GLUCOSE,POINT OF CARE 168 MG/DL (70-110)
[2017-05-30 20:13] LABS: GLUCOSE COMMENT 1 Received Meds; GLUCOSE,POINT OF CARE 120 MG/DL (70-110)
[2017-05-30] MEDS: SIMVASTATIN 10 MG TABLET PO SCH (20:23)
[2017-05-30] MEDS: ZOLPIDEM TARTRATE 10 MG TABLET PO PRN (20:23)
[2017-05-30 20:29] LABS: GLUCOSE,POINT OF CARE 130 MG/DL (70-110)
[2017-05-30] MEDS: INSULIN DETEMIR 100 UNITS/ML SQ SCH (21:05)
[2017-05-31 05:39] LABS: GLUCOSE COMMENT 1 Received Meds; GLUCOSE,POINT OF CARE 114 MG/DL (70-110)
[2017-05-31 06:01] VITALS: BP 134/77
[2017-05-31] MEDS: INSULIN LISPRO PROTAM-LISPRO HUM 75/25 UNITS/ML SQ SCH ×4 (06:43→17:55)
[2017-05-31] MEDS: INSULIN ASPART 100 UNITS/ML SQ PRN ×3 (06:45→21:41)
[2017-05-31 08:50] VITALS: BP 124/69
[2017-05-31] MEDS: IBUPROFEN 600 MG TABLET PO PRN (08:56)
[2017-05-31] MEDS: RisperiDONE 2 MG TABLET PO SCH ×2 (08:56→21:05)
[2017-05-31] MEDS: LORazepam 2 MG TABLET PO PRN ×3 (08:56→16:37)
[2017-05-31] MEDS: LISINOPRIL 10 MG TABLET PO SCH (08:56)
[2017-05-31] MEDS: FLUoxetine HCL 20 MG CAPSULE PO SCH (08:56)
[2017-05-31] MEDS: DIVALPROEX SODIUM 500 MG ER TABLET PO SCH ×2 (08:56→16:36)
[2017-05-31] MEDS: NICOTINE 21 MG/24 HOUR PATCH TD SCH (09:01)
[2017-05-31] MEDS: MUPIROCIN CALCIUM 2% 22 GM OINTMENT NASAL SCH ×2 (09:01→17:17)
[2017-05-31 11:17] LABS: GLUCOSE,POINT OF CARE 76 MG/DL (70-110)
[2017-05-31 12:08] LABS: GLUCOSE,POINT OF CARE 92 MG/DL (70-110)
[2017-05-31] MEDS: BENZOCAINE 10% 7 GM GEL TP PRN (12:14)
[2017-05-31 16:43] LABS: GLUCOSE,POINT OF CARE 203 MG/DL (70-110)
[2017-05-31 16:44] VITALS: BP 128/74
[2017-05-31] MEDS: SIMVASTATIN 10 MG TABLET PO SCH (21:05)
[2017-05-31 21:18] LABS: GLUCOSE,POINT OF CARE 149 MG/DL (70-110)
[2017-05-31] MEDS: INSULIN DETEMIR 100 UNITS/ML SQ SCH (21:40)
[2017-06-01 05:39] VITALS: BP 103/64
[2017-06-01 06:28] LABS: GLUCOSE,POINT OF CARE 91 MG/DL (70-110)
[2017-06-01] MEDS: INSULIN ASPART 100 UNITS/ML SQ PRN ×2 (06:50→13:15)
[2017-06-01] MEDS: INSULIN LISPRO PROTAM-LISPRO HUM 75/25 UNITS/ML SQ SCH ×3 (07:09→17:52)
[2017-06-01 10:15] VITALS: BP 134/78
[2017-06-01] MEDS: FLUoxetine HCL 20 MG CAPSULE PO SCH (10:16)
[2017-06-01] MEDS: RisperiDONE 2 MG TABLET PO SCH ×2 (10:17→21:03)
[2017-06-01] MEDS: LISINOPRIL 10 MG TABLET PO SCH (10:17)
[2017-06-01] MEDS: DIVALPROEX SODIUM 500 MG ER TABLET PO SCH ×2 (10:17→17:02)
[2017-06-01] MEDS: IBUPROFEN 600 MG TABLET PO PRN ×2 (10:18→17:02)
[2017-06-01] MEDS: LORazepam 2 MG TABLET PO PRN ×2 (10:18→17:02)
[2017-06-01] MEDS: MUPIROCIN CALCIUM 2% 22 GM OINTMENT NASAL SCH ×2 (10:19→17:06)
[2017-06-01] MEDS: BENZOCAINE 10% 7 GM GEL TP PRN ×2 (10:19→17:02)
[2017-06-01] MEDS: NICOTINE 21 MG/24 HOUR PATCH TD SCH (10:20)
[2017-06-01 11:52] LABS: GLUCOSE,POINT OF CARE 127 MG/DL (70-110)
[2017-06-01 16:27] VITALS: BP 115/79
[2017-06-01 17:18] LABS: GLUCOSE COMMENT 1 FASTING; GLUCOSE,POINT OF CARE 112 MG/DL (70-110)
[2017-06-01] MEDS: INSULIN DETEMIR 100 UNITS/ML SQ SCH (21:00)
[2017-06-01] MEDS: AMOX TR/POT CLAV 500 MG/125 MG TABLET PO SCH (21:04)
[2017-06-01] MEDS: SIMVASTATIN 10 MG TABLET PO SCH (21:04)
[2017-06-01 22:37] LABS: GLUCOSE COMMENT 1 FASTING; GLUCOSE,POINT OF CARE 105 MG/DL (70-110)
[2017-06-02 05:44] VITALS: BP 127/82
[2017-06-02 05:48] LABS: GLUCOSE COMMENT 1 Received Meds; GLUCOSE,POINT OF CARE 110 MG/DL (70-110)
[2017-06-02] MEDS: INSULIN LISPRO PROTAM-LISPRO HUM 75/25 UNITS/ML SQ SCH ×3 (06:43→17:52)
[2017-06-02] MEDS: BENZOCAINE 10% 7 GM GEL TP PRN ×2 (06:47→15:21)
[2017-06-02] MEDS: INSULIN ASPART 100 UNITS/ML SQ PRN ×3 (07:00→21:38)
[2017-06-02 08:25] VITALS: BP 128/89
[2017-06-02] MEDS: AMOX TR/POT CLAV 500 MG/125 MG TABLET PO SCH ×2 (08:27→16:33)
[2017-06-02] MEDS: RisperiDONE 2 MG TABLET PO SCH ×2 (08:27→21:37)
[2017-06-02] MEDS: DIVALPROEX SODIUM 500 MG ER TABLET PO SCH ×2 (08:27→16:33)
[2017-06-02] MEDS: IBUPROFEN 600 MG TABLET PO PRN ×2 (08:27→15:14)
[2017-06-02] MEDS: FLUoxetine HCL 20 MG CAPSULE PO SCH (08:27)
[2017-06-02] MEDS: LORazepam 2 MG TABLET PO PRN ×2 (08:27→15:14)
[2017-06-02] MEDS: MAGNESIUM SULFATE 454 GM BOX PO SCH ×3 (08:28→17:52)
[2017-06-02] MEDS: NICOTINE 21 MG/24 HOUR PATCH TD SCH (08:29)
[2017-06-02] MEDS: LISINOPRIL 10 MG TABLET PO SCH (08:29)
[2017-06-02] MEDS: MUPIROCIN CALCIUM 2% 22 GM OINTMENT NASAL SCH ×2 (08:29→16:33)
[2017-06-02 12:07] LABS: GLUCOSE,POINT OF CARE 92 MG/DL (70-110)
[2017-06-02 16:33] LABS: GLUCOSE,POINT OF CARE 76 MG/DL (70-110)
[2017-06-02 16:40] VITALS: BP 143/95
[2017-06-02] MEDS: INSULIN DETEMIR 100 UNITS/ML SQ SCH (21:36)
[2017-06-02] MEDS: SIMVASTATIN 10 MG TABLET PO SCH (21:37)
[2017-06-02] MEDS: ZOLPIDEM TARTRATE 10 MG TABLET PO PRN (21:37)
[2017-06-02 21:43] LABS: GLUCOSE,POINT OF CARE 141 MG/DL (70-110)
[2017-06-03 06:22] LABS: GLUCOSE,POINT OF CARE 125 MG/DL (70-110)
[2017-06-03 06:22] LABS: GLUCOSE COMMENT 1 Juice/Food/D50 Given; GLUCOSE,POINT OF CARE 67 MG/DL (70-110)
[2017-06-03] MEDS: INSULIN LISPRO PROTAM-LISPRO HUM 75/25 UNITS/ML SQ SCH ×3 (07:06→17:17)
[2017-06-03] MEDS: MAGNESIUM SULFATE 454 GM BOX PO SCH ×3 (08:05→18:07)
[2017-06-03 09:00] VITALS: BP 127/76
[2017-06-03] MEDS: FLUoxetine HCL 20 MG CAPSULE PO SCH (09:06)
[2017-06-03] MEDS: RisperiDONE 2 MG TABLET PO SCH ×2 (09:07→21:21)
[2017-06-03] MEDS: SIMVASTATIN 10 MG TABLET PO SCH (09:07)
[2017-06-03] MEDS: DIVALPROEX SODIUM 500 MG ER TABLET PO SCH ×2 (09:07→16:03)
[2017-06-03] MEDS: NICOTINE 21 MG/24 HOUR PATCH TD SCH (09:08)
[2017-06-03] MEDS: AMOX TR/POT CLAV 500 MG/125 MG TABLET PO SCH ×2 (09:09→16:04)
[2017-06-03] MEDS: LISINOPRIL 10 MG TABLET PO SCH (09:09)
[2017-06-03] MEDS: MUPIROCIN CALCIUM 2% 22 GM OINTMENT NASAL SCH ×2 (09:10→16:04)
[2017-06-03] MEDS: LORazepam 2 MG TABLET PO PRN ×2 (09:14→16:03)
[2017-06-03 09:43] LABS: GLUCOSE,POINT OF CARE 56 MG/DL (70-110)
[2017-06-03 11:59] LABS: GLUCOSE COMMENT 1 Juice/Food/D50 Given; GLUCOSE,POINT OF CARE 58 MG/DL (70-110)
[2017-06-03 13:42] LABS: GLUCOSE,POINT OF CARE 130 MG/DL (70-110)
[2017-06-03] MEDS: INSULIN ASPART 100 UNITS/ML SQ PRN ×2 (13:49→21:37)
[2017-06-03 16:33] VITALS: BP 126/81
[2017-06-03 16:38] LABS: GLUCOSE,POINT OF CARE 140 MG/DL (70-110)
[2017-06-03 21:22] LABS: GLUCOSE,POINT OF CARE 161 MG/DL (70-110)
[2017-06-03] MEDS: INSULIN DETEMIR 100 UNITS/ML SQ SCH (21:29)
[2017-06-03] MEDS ORDERED: LISI-661 PO (22:57)
[2017-06-03] MEDS ORDERED: INSU100V12 SQ (22:57)
[2017-06-03] MEDS ORDERED: AMOX1TAB15 PO (22:57)
[2017-06-04] MEDS: ZOLPIDEM TARTRATE 10 MG TABLET PO PRN (02:17)
[2017-06-04 02:20] VITALS: BP 118/88
[2017-06-04 04:32] VITALS: BP 130/80
[2017-06-04 06:43] LABS: GLUCOSE COMMENT 1 Received Meds; GLUCOSE,POINT OF CARE 199 MG/DL (70-110)
[2017-06-04] MEDS: INSULIN LISPRO PROTAM-LISPRO HUM 75/25 UNITS/ML SQ SCH ×2 (06:59→13:10)
[2017-06-04] MEDS: INSULIN ASPART 100 UNITS/ML SQ PRN (07:00)
[2017-06-04] MEDS: MAGNESIUM SULFATE 454 GM BOX PO SCH ×2 (08:00→13:02)
[2017-06-04 08:59] VITALS: BP 140/92
[2017-06-04] MEDS: AMOX TR/POT CLAV 500 MG/125 MG TABLET PO SCH (09:00)
[2017-06-04] MEDS: DIVALPROEX SODIUM 500 MG ER TABLET PO SCH (09:00)
[2017-06-04] MEDS: RisperiDONE 2 MG TABLET PO SCH (09:00)
[2017-06-04] MEDS: LISINOPRIL 10 MG TABLET PO SCH (09:00)
[2017-06-04] MEDS: FLUoxetine HCL 20 MG CAPSULE PO SCH (09:00)
[2017-06-04] MEDS: MUPIROCIN CALCIUM 2% 22 GM OINTMENT NASAL SCH (09:00)
[2017-06-04] MEDS: NICOTINE 21 MG/24 HOUR PATCH TD SCH (09:01)
[2017-06-04] MEDS: LORazepam 2 MG TABLET PO PRN (09:02)
[2017-06-04 09:42] LABS: GLUCOSE,POINT OF CARE 77 MG/DL (70-110)
[2017-06-04] MEDS ORDERED: SIMV-259 PO (10:09)
[2017-06-04 11:28] LABS: GLUCOSE,POINT OF CARE 96 MG/DL (70-110)
[2017-06-04] MEDS: IBUPROFEN 600 MG TABLET PO PRN (12:58)
[2017-06-04 13:02] LABS: GLUCOSE,POINT OF CARE 223 MG/DL (70-110)
== END 2017-06-04 14:00 | disposition home or self-care (01) | DRG 750 ==
LOC: EMS 01:09 → 3EI 01:45
PROVIDERS: ADMIT Psychiatry & Neurology Psychiatry; ATTEND Psychiatry & Neurology Psychiatry
PROC: 3E0234Z Introduction of Serum, Toxoid and Vaccine into Muscle, Percutaneous Approach (ICD-10-PCS; principal; 2017-05-29)
DX: F25.1 Schizoaffective disorder, depressive type (principal); R45.851 Suicidal ideations; E11.65 Type 2 diabetes mellitus with hyperglycemia; F32.9 Major depressive disorder, single episode, unspecified; F41.0 Panic disorder [episodic paroxysmal anxiety]; F41.9 Anxiety disorder, unspecified; F17.210 Nicotine dependence, cigarettes, uncomplicated; F10.10 Alcohol abuse, uncomplicated; R07.89 Other chest pain; I10 Essential (primary) hypertension; K21.9 Gastro-esophageal reflux disease without esophagitis; K59.00 Constipation, unspecified; E78.5 Hyperlipidemia, unspecified; K08.89 Other specified disorders of teeth and supporting structures; E66.9 Obesity, unspecified; Z68.35 Body mass index [BMI] 35.0-35.9, adult; Z71.6 Tobacco abuse counseling; Z71.41 Alcohol abuse counseling and surveillance of alcoholic; Z91.5 Personal history of self-harm; Z81.8 Family history of other mental and behavioral disorders; Z23 Encounter for immunization
CPT/HCPCS: 82962; 87081; 90471; 93005; 99285; G0480; J1815

== ENCOUNTER 2017-09-06 09:45 | Emergency (ER) | payer SELFPAY ==
[~2017-09-06] VITALS: Ht 172.7 cm; Wt 102.3 kg
[~2017-09-06 09:45] MED LIST changes: +AMOX1TAB15 PO; -BLOO-140; -GUAIFDM PO; -INSLAN SQ; -INSNOV SQ; +INSU100V12 SQ; -LANC1COM2 SQ; -LANC1KIT39 MC; +LISI-661 PO; +SIMV-259 PO; -SIMV-260 PO; -SODI44SP18 NASAL
[2017-09-06 09:57] LABS: GLUCOSE,POINT OF CARE > 600 MG/DL (70-110)
[2017-09-06] MEDS ORDERED: SODIUM CHLORIDE 0.9% 2,000 ML IV ONE (10:30)
[2017-09-06] MEDS ORDERED: INSULIN REGULAR, HUMAN 100 UNITS/ML IVP ONE (10:30)
[2017-09-06 10:56] LABS: BASOPHILS % (AUTO) 0.6 % (0.0-2.0); EOSINOPHILS % (AUTO) 0.8 % (1.0-6.0); HEMOGLOBIN 15.6 g/dL (13.5-17.5); LYMPHOCYTES # (AUTO) 2.3 K/uL (1.0-4.8); LYMPHOCYTES % (AUTO) 48.3 % (22.0-44.0); MEAN CORPUSCULAR HGB CONC 34.8 G/dL (31.0-37.0); MEAN CORPUSCULAR VOLUME 89 fL (80-100); MONOCYTES # (AUTO) 0.3 K/uL (0.1-1.0); NEUTROPHILS # (AUTO) 2.1 K/uL (1.8-7.7); NEUTROPHILS % (AUTO) 43.3 % (40.0-70.0); PLATELET COUNT (AUTO) 199 K/uL (150-450); RED BLOOD CELL COUNT(AUTO) 5.04 MIL/uL (4.50-5.90); RED CELL DISTRIBUTION WIDTH 12.5 % (11.5-14.5)
[2017-09-06 10:58] LABS: APPEARANCE,URINE CLEAR (CLEAR); BILIRUBIN,URINE NEGATIVE (NEGATIVE); GLUCOSE, URINE (UA) >=1000 mg/dL (NEGATIVE); KETONES,URINE NEGATIVE (NEGATIVE); LEUKOCYTE ESTERASE ,URINE NEGATIVE (NEGATIVE); NITRATE,URINE NEGATIVE (NEGATIVE); OCCULT BLOOD,URINE NEGATIVE (NEGATIVE); PROTEIN,URINE NEGATIVE (NEGATIVE); UROBILINOGEN,URINE 0.2 mg/dL (<=1.0)
[2017-09-06 11:12] LABS: ALANINE AMINOTRANSFERASE 16 U/L (12-78); ALBUMIN 3.8 g/dL (3.4-5.0); ALKALINE PHOSPHATASE 124 U/L (46-116); ANION GAP 9 mmol/L (8-16); ASPARTATE AMINOTRANSFERASE 10 U/L (15-37); BILIRUBIN,TOTAL 0.4 mg/dL (0.1-1.0); CALCIUM, TOTAL 8.8 mg/dL (8.8-10.5); CARBON DIOXIDE 30 mmol/L (22-29); CHLORIDE 98 mmol/L (98-107); CREATININE 1.02 mg/dL (0.60-1.30); GLOMERULAR FILTR. RATE CALC > 60 mL/min (>60); POTASSIUM 4.2 mmol/L (3.5-5.1); RBC,URINE 0-2 /HPF (0-2); SODIUM SERUM 137 mmol/L (136-145); TOTAL PROTEIN, SERUM 7.4 g/dL (6.4-8.2); UREA NITROGEN, BLOOD 7 mg/dL (7-18)
[2017-09-06 11:13] LABS: BACTERIA,URINE None Seen /HPF (None Seen); GLUCOSE,RANDOM 644 mg/dL (70-110); WBC,URINE 0-2 /HPF (0-5)
[2017-09-06] MEDS ORDERED: ACETAMINOPHEN 500 MG TABLET PO ONE (11:45)
[2017-09-06 12:43] LABS: GLUCOSE,POINT OF CARE 160 MG/DL (70-110)
[2017-09-06 12:57] LABS: GLUCOSE,POINT OF CARE 165 MG/DL (70-110)
[2017-09-06 13:53] LABS: GLUCOSE,POINT OF CARE 238 MG/DL (70-110)
[2017-09-06 14:15] VITALS: BP 120/69
== END 2017-09-06 15:12 | disposition home or self-care (01) ==
LOC: EMS 09:47
DX: E11.65 Type 2 diabetes mellitus with hyperglycemia (principal); E11.40 Type 2 diabetes mellitus with diabetic neuropathy, unspecified; F20.9 Schizophrenia, unspecified; I10 Essential (primary) hypertension; Z79.4 Long term (current) use of insulin; F17.210 Nicotine dependence, cigarettes, uncomplicated
CPT/HCPCS: 36415; 80053; 81001; 82948; 82962; 85025; 96361; 96374; 99285; 99406; J1815; J7030

== ENCOUNTER 2017-09-10 15:28 | Inpatient (IN) | payer MEDICAID ==
[~2017-09-10] VITALS: Ht 172.7 cm; Wt 103.2 kg
[~2017-09-10 15:28] MED LIST changes: -AMOX1TAB15 PO
[2017-09-10] MEDS ORDERED: INSLAN SQ (15:40)
[2017-09-10 15:42] LABS: GLUCOSE,POINT OF CARE 384 MG/DL (70-110)
[2017-09-10] MEDS ORDERED: LORazepam 2 MG TABLET PO ONE (16:45)
[2017-09-10] MEDS ORDERED: HALOPERIDOL 5 MG TABLET PO PRN (17:00)
[2017-09-10] MEDS ORDERED: ZOLPIDEM TARTRATE 10 MG TABLET PO PRN (17:00)
[2017-09-10 17:18] LABS: BASOPHILS % (AUTO) 0.6 % (0.0-2.0); EOSINOPHILS % (AUTO) 0.7 % (1.0-6.0); HEMATOCRIT 45.9 % (41-53); LYMPHOCYTES % (AUTO) 36.1 % (22.0-44.0); MEAN CORPUSCULAR HEMOGLOBIN 30.8 pg (26.0-34.0); MEAN CORPUSCULAR HGB CONC 34.9 G/dL (31.0-37.0); MEAN CORPUSCULAR VOLUME 88 fL (80-100); MONOCYTES # (AUTO) 0.5 K/uL (0.1-1.0); MONOCYTES % (AUTO) 6.2 % (2.0-9.0); NEUTROPHILS # (AUTO) 4.8 K/uL (1.8-7.7); NEUTROPHILS % (AUTO) 56.4 % (40.0-70.0); PLATELET COUNT (AUTO) 216 K/uL (150-450); RED CELL DISTRIBUTION WIDTH 12.5 % (11.5-14.5)
[2017-09-10 17:30] LABS: ANION GAP 8 mmol/L (8-16); CARBON DIOXIDE 30 mmol/L (22-29); CHLORIDE 99 mmol/L (98-107); CREATININE 0.81 mg/dL (0.60-1.30); GLOMERULAR FILTR. RATE CALC > 60 mL/min (>60); GLUCOSE,RANDOM 372 mg/dL (70-110); POTASSIUM 3.7 mmol/L (3.5-5.1); SODIUM SERUM 137 mmol/L (136-145); UREA NITROGEN, BLOOD 8 mg/dL (7-18)
[2017-09-10 17:36] LABS: ALANINE AMINOTRANSFERASE 20 U/L (12-78); ALBUMIN 3.9 g/dL (3.4-5.0); ALKALINE PHOSPHATASE 92 U/L (46-116); ASPARTATE AMINOTRANSFERASE 14 U/L (15-37); BILIRUBIN,TOTAL 0.3 mg/dL (0.1-1.0); TOTAL PROTEIN, SERUM 7.7 g/dL (6.4-8.2)
[2017-09-10 18:11] LABS: AMPHET/METH SCREEN,URINE NEGATIVE (NEGATIVE); BARBITURATE SCREEN, URINE NEGATIVE (NEGATIVE); BENZODIAZEPINES SCREEN,URINE NEGATIVE (NEGATIVE); CANNABINOID SCREEN,URINE NEGATIVE (NEGATIVE); COCAINE SCREEN,URINE NEGATIVE (NEGATIVE); METHADONE SCREEN, URINE NEGATIVE (NEGATIVE); OPIATE SCREEN,URINE NEGATIVE (NEGATIVE)
[2017-09-10 18:34] LABS: PHENCYCLIDINE SCREEN,URINE NEGATIVE (NEGATIVE)
[2017-09-10] MEDS ORDERED: INSULIN REGULAR, HUMAN 100 UNITS/ML SQ ONE (19:00)
[2017-09-10 19:18] LABS: GLUCOSE,POINT OF CARE 381 MG/DL (70-110)
[2017-09-10 20:43] LABS: GLUCOSE,POINT OF CARE 323 MG/DL (70-110)
[2017-09-10] MEDS ORDERED: INSULIN REGULAR, HUMAN 100 UNITS/ML IVP ONE (21:15)
[2017-09-10] MEDS ORDERED: SODIUM CHLORIDE 0.9% 2,000 ML IV ONE (21:15)
[2017-09-10] MEDS: RisperiDONE 2 MG TABLET PO SCH (21:30)
[2017-09-10] MEDS: DIVALPROEX SODIUM 500 MG ER TABLET PO SCH (21:30)
[2017-09-10 22:47] LABS: GLUCOSE,POINT OF CARE 114 MG/DL (70-110)
[2017-09-11 00:54] VITALS: BP 130/75
[2017-09-11] MEDS ORDERED: -PHARMACY VACCINE NOTE- MISC ONE (01:00)
[2017-09-11 05:57] LABS: GLUCOMETER DEV NAME(LOC) 3EI B; GLUCOSE,POINT OF CARE 265 MG/DL (70-110)
[2017-09-11 07:52] LABS: CHOL/HDL RATIO 6.4 (4.2-7.3)
[2017-09-11] MEDS ORDERED: CloNIDine HCL 0.1 MG TABLET PO PRN (09:00)
[2017-09-11] MEDS ORDERED: ALBUTEROL SULFATE HFA 90 MCG/PUFF 8 GM INHALER IH PRN (09:00)
[2017-09-11] MEDS ORDERED: ACETAMINOPHEN 325 MG TABLET PO PRN (09:00)
[2017-09-11] MEDS ORDERED: MAGNESIUM HYDROXIDE SUSPENSION 30 ML UDCUP PO PRN (09:00)
[2017-09-11] MEDS ORDERED: ONDANSETRON HCL 4 MG TABLET PO PRN (09:00)
[2017-09-11] MEDS ORDERED: MAG HYDROX/AL HYDROX/SIMETH ES 30 ML SUSPENSION UDCUP PO PRN (09:00)
[2017-09-11] MEDS ORDERED: LOPERAMIDE HCL 2 MG CAPSULE PO PRN (09:00)
[2017-09-11] MEDS ORDERED: IBUPROFEN 600 MG TABLET PO PRN (09:00)
[2017-09-11] MEDS ORDERED: DEXTROSE 50%-WATER 25 GM/50 ML SYRINGE IVP PRN (09:00)
[2017-09-11] MEDS ORDERED: BACITRACIN 28.4 GM OINTMENT TP PRN (09:00)
[2017-09-11] MEDS ORDERED: PETROLATUM,WHITE 71 GM JELLY TP PRN (09:00)
[2017-09-11] MEDS: LISINOPRIL 10 MG TABLET PO SCH (09:10)
[2017-09-11] MEDS: NICOTINE 21 MG/24 HOUR PATCH TD SCH (09:10)
[2017-09-11] MEDS: FLUoxetine HCL 20 MG CAPSULE PO SCH (09:10)
[2017-09-11] MEDS: DIVALPROEX SODIUM 500 MG ER TABLET PO SCH ×2 (09:12→17:06)
[2017-09-11] MEDS: RisperiDONE 2 MG TABLET PO SCH ×2 (09:12→20:14)
[2017-09-11] MEDS ORDERED: BENZOCAINE/MENTHOL LOZENGE [8 LOZENGES/PACKET] MM PRN (09:15)
[2017-09-11] MEDS: OMEGA-3/DHA/EPA/FISH OIL 1,000 MG CAPSULE PO SCH (09:56)
[2017-09-11 10:43] VITALS: BP 109/67
[2017-09-11 11:38] LABS: GLUCOMETER DEV NAME(LOC) 3EI B; GLUCOSE,POINT OF CARE 319 MG/DL (70-110)
[2017-09-11] MEDS: INSULIN LISPRO PROTAM-LISPRO HUM 75/25 UNITS/ML SQ SCH ×2 (11:48→17:21)
[2017-09-11 17:05] VITALS: BP 112/81
[2017-09-11 17:33] LABS: GLUCOMETER DEV NAME(LOC) 3EI B; GLUCOSE,POINT OF CARE 280 MG/DL (70-110)
[2017-09-11] MEDS: LORazepam 2 MG TABLET PO PRN (20:18)
[2017-09-11] MEDS: INSULIN DETEMIR 100 UNITS/ML SQ SCH (21:40)
[2017-09-12 06:33] LABS: GLUCOMETER DEV NAME(LOC) 3EI B; GLUCOSE,POINT OF CARE 232 MG/DL (70-110)
[2017-09-12] MEDS: INSULIN LISPRO PROTAM-LISPRO HUM 75/25 UNITS/ML SQ SCH ×3 (06:49→17:34)
[2017-09-12] MEDS: OMEGA-3/DHA/EPA/FISH OIL 1,000 MG CAPSULE PO SCH (08:59)
[2017-09-12] MEDS: LISINOPRIL 10 MG TABLET PO SCH (08:59)
[2017-09-12] MEDS: FLUoxetine HCL 20 MG CAPSULE PO SCH (08:59)
[2017-09-12] MEDS: DIVALPROEX SODIUM 500 MG ER TABLET PO SCH ×2 (09:00→16:17)
[2017-09-12] MEDS: RisperiDONE 2 MG TABLET PO SCH ×2 (09:00→20:10)
[2017-09-12] MEDS: NICOTINE 21 MG/24 HOUR PATCH TD SCH (09:02)
[2017-09-12] MEDS: LORazepam 2 MG TABLET PO PRN ×2 (09:03→16:18)
[2017-09-12 09:54] VITALS: BP 128/79
[2017-09-12 11:33] LABS: GLUCOMETER DEV NAME(LOC) 3EI B; GLUCOSE,POINT OF CARE 222 MG/DL (70-110)
[2017-09-12 16:23] LABS: GLUCOMETER DEV NAME(LOC) 3EI B; GLUCOSE,POINT OF CARE 283 MG/DL (70-110)
[2017-09-12 20:16] VITALS: BP 127/85
[2017-09-12 20:18] LABS: GLUCOMETER DEV NAME(LOC) 3EI B; GLUCOSE,POINT OF CARE 228 MG/DL (70-110)
[2017-09-12] MEDS: INSULIN DETEMIR 100 UNITS/ML SQ SCH (21:00)
[2017-09-13 05:32] LABS: GLUCOMETER DEV NAME(LOC) 3EI B; GLUCOSE,POINT OF CARE 209 MG/DL (70-110)
[2017-09-13 05:45] VITALS: BP 118/69
[2017-09-13] MEDS: LORazepam 2 MG TABLET PO PRN ×2 (06:35→16:15)
[2017-09-13] MEDS: INSULIN LISPRO PROTAM-LISPRO HUM 75/25 UNITS/ML SQ SCH ×3 (06:45→17:13)
[2017-09-13 09:00] VITALS: BP 104/60
[2017-09-13] MEDS: DIVALPROEX SODIUM 500 MG ER TABLET PO SCH ×2 (09:31→16:14)
[2017-09-13] MEDS: FLUoxetine HCL 20 MG CAPSULE PO SCH (09:31)
[2017-09-13] MEDS: OMEGA-3/DHA/EPA/FISH OIL 1,000 MG CAPSULE PO SCH (09:31)
[2017-09-13] MEDS: RisperiDONE 2 MG TABLET PO SCH ×2 (09:31→20:41)
[2017-09-13] MEDS: LISINOPRIL 10 MG TABLET PO SCH (09:32)
[2017-09-13] MEDS: NICOTINE 21 MG/24 HOUR PATCH TD SCH (09:34)
[2017-09-13 11:52] LABS: GLUCOMETER DEV NAME(LOC) 3EI B; GLUCOSE,POINT OF CARE 99 MG/DL (70-110)
[2017-09-13 16:23] LABS: GLUCOMETER DEV NAME(LOC) 3EI B; GLUCOSE,POINT OF CARE 289 MG/DL (70-110)
[2017-09-13] MEDS: MUPIROCIN CALCIUM 2% 22 GM OINTMENT NASAL SCH (17:10)
[2017-09-13 19:11] VITALS: BP 130/71
[2017-09-13] MEDS ORDERED: DEXTROSE 50%-WATER 25 GM/50 ML SYRINGE IVP PRN (20:00)
[2017-09-13] MEDS: INSULIN ASPART 100 UNITS/ML SQ PRN (20:44)
[2017-09-13] MEDS: INSULIN DETEMIR 100 UNITS/ML SQ SCH (20:45)
[2017-09-13 20:48] LABS: GLUCOMETER DEV NAME(LOC) 3EI B; GLUCOSE,POINT OF CARE 332 MG/DL (70-110)
[2017-09-14 06:23] LABS: GLUCOMETER DEV NAME(LOC) 3EI B; GLUCOSE,POINT OF CARE 154 MG/DL (70-110)
[2017-09-14] MEDS: INSULIN LISPRO PROTAM-LISPRO HUM 75/25 UNITS/ML SQ SCH ×2 (06:55→11:42)
[2017-09-14] MEDS: INSULIN ASPART 100 UNITS/ML SQ PRN ×2 (06:56→11:40)
[2017-09-14 08:30] VITALS: BP 114/57
[2017-09-14] MEDS: LISINOPRIL 10 MG TABLET PO SCH (09:00)
[2017-09-14] MEDS: NICOTINE 21 MG/24 HOUR PATCH TD SCH (09:00)
[2017-09-14] MEDS: DIVALPROEX SODIUM 500 MG ER TABLET PO SCH (10:04)
[2017-09-14] MEDS: OMEGA-3/DHA/EPA/FISH OIL 1,000 MG CAPSULE PO SCH (10:04)
[2017-09-14] MEDS: FLUoxetine HCL 20 MG CAPSULE PO SCH (10:07)
[2017-09-14] MEDS: RisperiDONE 2 MG TABLET PO SCH (10:07)
[2017-09-14] MEDS ORDERED: INSU100V12 SQ (10:24)
[2017-09-14] MEDS ORDERED: LISI-661 PO (10:25)
[2017-09-14] MEDS ORDERED: OMEG-135 PO (10:25)
[2017-09-14 11:33] LABS: GLUCOMETER DEV NAME(LOC) 3EI B; GLUCOSE,POINT OF CARE 197 MG/DL (70-110)
[2017-09-14] MEDS: MUPIROCIN CALCIUM 2% 22 GM OINTMENT NASAL SCH (11:39)
[2017-09-14] MEDS ORDERED: MUPI1OIN4 NS (12:01)
== END 2017-09-14 14:15 | disposition home or self-care (01) | DRG 750 ==
LOC: EMS 15:48 → 3EI 23:14
DX: F25.1 Schizoaffective disorder, depressive type (principal); E11.65 Type 2 diabetes mellitus with hyperglycemia; R45.851 Suicidal ideations; I10 Essential (primary) hypertension; E78.5 Hyperlipidemia, unspecified; E66.9 Obesity, unspecified; F17.210 Nicotine dependence, cigarettes, uncomplicated; K21.9 Gastro-esophageal reflux disease without esophagitis; R45.850 Homicidal ideations; Z79.899 Other long term (current) drug therapy; Z91.5 Personal history of self-harm; Z83.3 Family history of diabetes mellitus; Z82.49 Family history of ischemic heart disease and other diseases of the circulatory system; Z68.34 Body mass index [BMI] 34.0-34.9, adult; Z79.4 Long term (current) use of insulin
CPT/HCPCS: 82962; 87081; 96372; 96374; 99285; J1815; J7030

== ENCOUNTER 2018-01-10 11:47 | Emergency (ER) | payer MEDICAID, OTHER ==
[~2018-01-10] VITALS: Ht 172.7 cm; Wt 109.0 kg
[~2018-01-10 11:47] MED LIST changes: +DSS100 PO; -HUMLIS7525 SQ; +INSLAN SQ; -INSU100V12 SQ; -LISI-661 PO; +OMEG-135 PO; +OMEP20 PO; -SIMV-259 PO
[2018-01-10 12:08] LABS: GLUCOSE,POINT OF CARE 391 MG/DL (70-110)
[2018-01-10] MEDS ORDERED: PARO20TA24 PO (12:10)
[2018-01-10] MEDS ORDERED: LIDOCAINE HCL/PF 1% 2 ML VIAL IM ONE (13:00)
[2018-01-10] MEDS ORDERED: INSULIN REGULAR, HUMAN 100 UNITS/ML SQ ONE (13:00)
[2018-01-10] MEDS ORDERED: CefTRIAXone SODIUM 1 GM/VIAL IM ONE (13:00)
[2018-01-10] MEDS ORDERED: ACETAMINOPHEN 500 MG TABLET PO ONE (13:30)
[2018-01-10 14:29] VITALS: BP 127/74
== END 2018-01-10 14:35 | disposition home or self-care (01) ==
LOC: EMS 11:49
DX: L73.9 Follicular disorder, unspecified (principal); L02.413 Cutaneous abscess of right upper limb; E11.65 Type 2 diabetes mellitus with hyperglycemia; F20.9 Schizophrenia, unspecified; F32.9 Major depressive disorder, single episode, unspecified; F41.9 Anxiety disorder, unspecified; I10 Essential (primary) hypertension; Z79.4 Long term (current) use of insulin
CPT/HCPCS: 82962; 96372; 99284; J0696; J1815; J3490